=== PATIENT | female | born 1995 | race Caucasian/White ===

== ENCOUNTER → 2017-02-01 | Outpatient (CLI) | payer OTHER ==
--- NOTE | 2017-02-01 11:34 | KCIC ---
PROCEDURE MRI brain without contrast. 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 COMPARISON None FINDINGS Ventricles, sulci, cisterns are within normal limits in size and configuration. There is no intra-axial mass effect, midline shift, extra-axial fluid collection. There is no restricted diffusion suggestive of a recent infarct or cytotoxic edema. There is preservation of the major arterial intracranial flow voids at the skull base. Globes are symmetric in size and signal characteristics. Cerebellar tonsils are normal in location. There is somewhat convex superior margin of the central pituitary gland although not considered significantly enlarged 0.7 cm cc. There is no significant abnormality of the pineal gland. There is no significant focal signal abnormality including hemosiderin deposition of the brain parenchyma. There is mild nonspecific prominence of the adenoids. Mild thickening of the mastoid air cells bilaterally. There is a round focus of T2 and T1 hyperintense signal posterior right at mastoid air cell 0.7 cm AP. There is very minimal maxillary sinus and negligible patchy ethmoid air cell mucosal thickening bilaterally. There is nonspecific mild increased CSF signal of the optic nerve sheaths. IMPRESSION 1. There is no significant intracranial abnormality. 2. There is very mild paranasal sinus mucosal thickening as stated. Nonspecific round focus of non expansile signal change of a posterior right mastoid air cell may be due to sequela of inspissated complex fluid. 3. There is nonspecific convex superior margin of the central pituitary gland. However findings sometimes can be normally seen in a patient of this age, hyperplasia another possibility. Underlying mass seems unlikely given fairly homogeneous signal features. Electronically signed by: Peter Dominguez MD (Feb 01, 2017 11:32:37)
== END | disposition home or self-care (01) ==
LOC: KCIC MRI 10:38
PROVIDERS: ATTEND Psychiatry & Neurology Neurology
DX: G24.5 Blepharospasm (principal); J34.89 Other specified disorders of nose and nasal sinuses
CPT/HCPCS: 70551